=== PATIENT | female | born 1980 | race Caucasian/White ===

== ENCOUNTER 2016-12-11 11:52 | Inpatient (IN) | payer BC ==
[2016-12-11 12:29] LABS: Hematocrit 36 % (35-47); Hemoglobin 12.2 g/dl (12.0-16.0); Mean Corpuscular HGB Conc 34 g/dl (31-36); Mean Corpuscular Hemoglobin 31 pg (27-31); Mean Corpuscular Volume 90 fL (80-97); Mean Platelet Volume 10 um3 (7.4-10.4); Red Blood Count 3.95 10^6/ul (4.0-5.4); Red Cell Distribution Width 14 % (10.5-15); White Blood Count 13.1 10^3/ul (3.5-10.8)
[2016-12-11] MEDS ORDERED: Oxytocin in LR* 20 UNITS/1,000 ML BAG IVPB ONE (19:23)
[2016-12-11] MEDS ORDERED: Witch Hazel PAD* JAR TOPICAL PRN (19:55)
[2016-12-11] MEDS ORDERED: Misoprostol TAB* 200 MCG PR ONE (19:55)
[2016-12-11] MEDS ORDERED: Dibucaine 1% 28.35 GM TUBE PR PRN (19:55)
[2016-12-11] MEDS ORDERED: Glycerin ADULT SUPP PR PRN (19:55)
[2016-12-11] MEDS ORDERED: Oxytocin in LR* 20 UNITS/1,000 ML BAG IVPB SCH (20:00)
[2016-12-11] MEDS ORDERED: Simethicone CHEW TAB* 80 MG PO SCH (21:00)
[2016-12-11] MEDS: Ibuprofen TAB* 600 MG PO PRN (22:19)
[2016-12-12] MEDS: Acetaminophen TAB* 325 MG PO PRN ×3 (00:09→17:23)
[2016-12-12] MEDS: Docusate CAP* 100 MG PO SCH ×2 (07:18→13:45)
[2016-12-12] MEDS: Ibuprofen TAB* 600 MG PO PRN (07:18)
[2016-12-12 08:38] LABS: Hematocrit 34 % (35-47); Hemoglobin 11.5 g/dl (12.0-16.0); Mean Corpuscular HGB Conc 33 g/dl (31-36); Mean Corpuscular Hemoglobin 31 pg (27-31); Mean Corpuscular Volume 91 fL (80-97); Mean Platelet Volume 10 um3 (7.4-10.4); Red Blood Count 3.76 10^6/ul (4.0-5.4); Red Cell Distribution Width 14 % (10.5-15); White Blood Count 13.2 10^3/ul (3.5-10.8)
[2016-12-12] MEDS ORDERED: Ferrous Gluconate TAB* 324 MG TAB PO SCH (09:00)
[2016-12-13] MEDS: Docusate CAP* 100 MG PO SCH ×2 (01:02→09:14)
[2016-12-13] MEDS: Acetaminophen TAB* 325 MG PO PRN (03:58)
[2016-12-13 07:58] VITALS: BP 105/71
[2016-12-13] MEDS ORDERED: RHO D Immune Globulin (HUMAN)* 300 MCG = 1,500 I.U. INJ IM ONE (08:35)
== END 2016-12-13 16:17 | disposition home or self-care (01) | DRG 560 ==
LOC: MCHOBOUT 11:52 → MCHOB 12:03
PROVIDERS: ADMIT Midwife; ATTEND Midwife
PROC: 10E0XZZ Delivery of Products of Conception, External Approach (ICD-10-PCS; principal; 2016-12-11)
PROC: 10907ZC Drainage of Amniotic Fluid, Therapeutic from Products of Conception, Via Natural or Artificial Opening (ICD-10-PCS; 2016-12-11)
DX: O99.824 Streptococcus B carrier state complicating childbirth (principal); Z37.0 Single live birth; Z3A.39 39 weeks gestation of pregnancy
CPT/HCPCS: 36415; 85025; 85461; 86850; 86900; 86901; A9270-GY; J2540; J2790

== ENCOUNTER 2022-08-25 12:20 | Inpatient (IN) ==
[2022-08-25 13:16] LABS: ABS Basophils 0.1 10^3/uL (0.0-0.1); ABS Eosinophils 0.2 10^3/uL (0.0-0.5); ABS Lymphocytes 1.2 10^3/uL (1.0-4.8); ABS Monocytes 0.5 10^3/uL (0.0-0.9); ABS Neutrophils 7.2 10^3/uL (1.5-7.6); Eosinophil % 2.6 %; Hematocrit 41.8 % (35-45); Hemoglobin 14.5 g/dL (11.5-14.3); Lymphocyte % 13.5 %; Mean Corpuscular Hgb Conc 34.7 g/dL (31-36); Mean Platelet Volume 8.9 fL (7.5-11.2); Platelet Count 286 10^3/uL (150-450); Red Blood Count 4.54 10^6/uL (3.63-4.92); Red Cell Distribution Width 12.7 % (12-17); White Blood Count 9.2 10^3/uL (3.8-11.8)
[2022-08-25 13:25] LABS: Urine Appearance Clear; Urine Bilirubin Negative (Negative); Urine Blood Negative (Negative); Urine Color Straw; Urine Glucose Negative (Negative); Urine Ketones Negative (Negative); Urine Nitrite Negative (Negative); Urine Protein Negative (Negative); Urine Specific Gravity 1.004 (1.002-1.030); Urine Urobilinogen Negative (Negative)
[2022-08-25 13:42] LABS: Urine Benzodiazepine Screen None Detected (None Detect); Urine Cannabinoids Screen None Detected (None Detect); Urine Opiates Screen None Detected (None Detect)
[2022-08-25 14:08] LABS: ALT 15 U/L (7-52); AST 17 U/L (13-39); Acetaminophen < 15 mcg/mL; Albumin 4.4 g/dL (3.2-5.2); Albumin/Globulin Ratio 1.7 (1-3); Alcohol, S < 13 mg/dL (<13); Alkaline Phosphatase 40 U/L (35-149); Anion Gap 6 mmol/L (2-16); Blood Urea Nitrogen 11 mg/dL (6-24); CO2 Carbon Dioxide 26 mmol/L (22-32); Chloride 105 mmol/L (101-111); Creatinine, Serum 0.78 mg/dL (0.51-0.95); Globulin 2.6 g/dL (2-4); Glucose 111 mg/dL (70-100); Potassium 4.4 mmol/L (3.5-5.0); Salicylate < 2.50 mg/dL (<30); Sodium 137 mmol/L (135-145); eGFR CKD-EPI 98.4 (>60)
[2022-08-25 14:16] LABS: TSH Ultra Thyroid Stim Horm 0.81 mcIU/mL (0.34-5.60)
[2022-08-25] MEDS ORDERED: Al Hydrox/Mg Hydrox/Simet LIQ 30 ML UDC PO PRN (21:11)
[2022-08-27 08:27] LABS: HDL Cholesterol 68.2 mg/dL
[2022-08-29 07:57] VITALS: BP 133/73
== END 2022-08-29 12:23 | disposition home or self-care (01) | DRG 753 ==
LOC: ED 12:20 → EDHOLD 18:55 → BSU 19:07
PROVIDERS: ADMIT Psychiatry & Neurology Psychiatry; ATTEND Student in an Organized Health Care Education/Training Program